=== PATIENT | female | born 1980 | race Hispanic/Latino ===

== ENCOUNTER 2020-10-24 10:56 | Outpatient (CLI) | payer BC | END 2020-10-24 10:57 | disposition home or self-care (01) | LOC: CTENTCT 10:56 | PROVIDERS: ATTEND Otolaryngology Plastic Surgery within the Head & Neck | DX: J32.9 Chronic sinusitis, unspecified (principal) | CPT/HCPCS: 70486 ==

== ENCOUNTER 2020-12-01 13:53 | Outpatient (CLI) | payer BC ==
[2020-12-01 15:15] LABS: BHCG - Serum Negative (NEGATIVE)
[2020-12-01 15:16] LABS: Pregs Control Background? CLEAR/WHITE (CLR/WHITE); Pregs Control Bar Appear? YES (CONTROL BAR)
[2020-12-02 16:49] LABS: SARS-CoV-2 PCR by NAA Not Detected (NotDetected)
== END 2020-12-01 13:54 | disposition home or self-care (01) ==
LOC: LABBT 13:53
PROVIDERS: ATTEND Otolaryngology Plastic Surgery within the Head & Neck
DX: Z01.812 Encounter for preprocedural laboratory examination (principal); J32.9 Chronic sinusitis, unspecified; J30.9 Allergic rhinitis, unspecified; J34.3 Hypertrophy of nasal turbinates; J34.89 Other specified disorders of nose and nasal sinuses; Z20.822 Contact with and (suspected) exposure to COVID-19
CPT/HCPCS: 84703; 85014; U0003; U0005

== ENCOUNTER 2020-12-06 06:09 | Day surgery (SDC) | payer BC ==
[2020-12-05 14:35] VITALS: BMI 40.3
[2020-12-06] MEDS ORDERED: AFRIN NASAL MIST 15 ML BOT ONE ×2 (06:49→07:05)
[2020-12-06] MEDS ORDERED: Lidocaine 1% w/Epinephrine 1:100K 20 ML VIAL ONE (06:49)
[2020-12-06] MEDS ORDERED: SUGAMMADEX SODIUM 200 MG/2 ML VIAL ONE (07:16)
[2020-12-06] MEDS ORDERED: Fentanyl 100 MCG/2 ML VIAL ONE ×2 (07:16→08:43)
[2020-12-06] MEDS ORDERED: Ondansetron PF 4 MG/2 ML Vial ONE (07:40)
[2020-12-06] MEDS ORDERED: Dexamethasone 20 MG/5 ML VIAL ONE (07:40)
[2020-12-06] MEDS ORDERED: Lidocaine 1% PF 5 ML VIAL ONE (07:40)
[2020-12-06] MEDS ORDERED: Glycopyrrolate 0.2 MG/ML 5 ML SYRINGE ONE (07:40)
[2020-12-06] MEDS ORDERED: PROPOFOL 200 MG/20 ML VIAL ONE (07:40)
[2020-12-06] MEDS ORDERED: Rocuronium Bromide 10 MG/ML (10ML VIAL) ONE (07:40)
[2020-12-06] MEDS ORDERED: HYDROcodone/Acetaminophen 5/325 mg Tablet ONE (10:04)
[2020-12-06] MEDS ORDERED: Promethazine HCl 25 MG/ML VIAL ONE (10:10)
== END 2020-12-06 12:15 | disposition home or self-care (01) ==
LOC: SDC 06:09
PROVIDERS: ATTEND Specialist
PROC: 09TL8ZZ Resection of Nasal Turbinate, Via Natural or Artificial Opening Endoscopic (ICD-10-PCS; principal; 2020-12-06)
PROC: 09BX8ZZ Excision of Left Sphenoid Sinus, Via Natural or Artificial Opening Endoscopic (ICD-10-PCS; principal; 2020-12-06)
PROC: 099R8ZZ Drainage of Left Maxillary Sinus, Via Natural or Artificial Opening Endoscopic (ICD-10-PCS; principal; 2020-12-06)
PROC: 099T8ZZ Drainage of Left Frontal Sinus, Via Natural or Artificial Opening Endoscopic (ICD-10-PCS; principal; 2020-12-06)
PROC: 09TV8ZZ Resection of Left Ethmoid Sinus, Via Natural or Artificial Opening Endoscopic (ICD-10-PCS; principal; 2020-12-06)
PROC: 09TU8ZZ Resection of Right Ethmoid Sinus, Via Natural or Artificial Opening Endoscopic (ICD-10-PCS; principal; 2020-12-06)
PROC: 099Q8ZZ Drainage of Right Maxillary Sinus, Via Natural or Artificial Opening Endoscopic (ICD-10-PCS; principal; 2020-12-06)
PROC: 09BW8ZZ Excision of Right Sphenoid Sinus, Via Natural or Artificial Opening Endoscopic (ICD-10-PCS; principal; 2020-12-06)
PROC: 8E09XBZ Computer Assisted Procedure of Head and Neck Region (ICD-10-PCS; principal; 2020-12-06)
PROC: 099S8ZZ Drainage of Right Frontal Sinus, Via Natural or Artificial Opening Endoscopic (ICD-10-PCS; principal; 2020-12-06)
DX: J32.9 Chronic sinusitis, unspecified (principal); J34.3 Hypertrophy of nasal turbinates; J33.8 Other polyp of sinus; J34.89 Other specified disorders of nose and nasal sinuses; Z79.899 Other long term (current) drug therapy
CPT/HCPCS: 93005; 93010; J1100; J2405; J2550; J2704; J3010